=== PATIENT | female | born 1985 | race Two or more races ===

== ENCOUNTER 2024-12-28 19:30 | Emergency (ER) | payer MEDICAID, OTHER ==
[~2024-12-28] VITALS: Ht 160 cm; Wt 90.9 kg
[2024-12-28 19:40] VITALS: TEMP 98.7
--- NOTE | 2024-12-28 19:56 | ED.PDOC ---
History of Present Illness HPI Comments This is a 39-year-old female who comes in with chief complaint of chest pain which is substernal in nature. The patient states that the pain worsens with the movement and deep respiration rate. The patient also states that she has been increasing her workouts and the pain seems to also increase with movement at the gym. The patient denies any shortness a breath, nausea or vomiting. The patient was also having a mild headache. The symptoms started yesterday and seemed to worsened so she came to the emergency department for evaluation. Chief Complaint: Chest Pain Time Seen by MD: 19:31 Reviewed Notes: Nurses Notes, Medications, Allergies (No allergies to medications) Allergies: Coded Allergies: NO KNOWN ALLERGIES (Unverified , 12/28/24) Information Source: Patient Mode of Arrival: Ambulatory Severity: Mild Timing: Days Duration: Since onset Prehospital treatment: None Location: Substernal chest pain that is sharp in nature Associated signs and symptoms The patient states that she is not having any shortness for breath, nausea or vomiting Past Medical History PAST MEDICAL HISTORY: Denies Surgical History: Denies all surgeries 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 MILLING 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 History: No 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 CHEMICAL MILLING PROCESSOR History Family History Family History: Family hx of HTN, Family hx of stroke Social History Smoker: Non-Smoker Alcohol: Occasionally Drugs: Marijuana Lives In: Home Constitutional: denies: chills, diaphoresis, fatigue, fever, malaise, sweats, weakness, others EENTM: denies: blurred vision, double vision, ear bleeding, ear discharge, ear drainage, ear pain, ear ringing, eye pain, eye redness, hearing loss, mouth pain, mouth swelling, nasal discharge, nose bleeding, nose congestion, nose pain, photophobia, tearing, throat pain, throat swelling, voice changes, others Respiratory: denies: cough, hemoptysis, orthopnea, SOB at rest, shortness of breath, SOB with excertion, stridor, wheezing, others Cardiovascular: reports: chest pain; denies: dizzy spells, diaphoresis, Dyspnea on exertion, edema, irregular heart beat, left arm pain, lightheadedness, palpitations, PND, syncope, others Gastrointestinal: denies: abdomen distended, abdominal pain, blood streaked bowels, constipated, diarrhea, dysphagia, difficulty swallowing, hematemesis, melena, nausea, poor appetite, poor fluid intake, rectal bleeding, rectal pain, vomiting, others Genitourinary: denies: abnormal vagina bleeding, burning, dyspareunia, dysuria, flank pain, frequency, hematuria, incontinence, pain, , vagina discharge, urgency, others Neurological: reports: headache; denies: dizziness, fainting, left sided numbness, left sided weakness, numbness, paresthesia, pre-existing deficit, right sided numbness, right sided weakness, seizure, speech problems, tingling, tremors, weakness, others Musculoskeletal: denies: back pain, gout, joint pain, joint swelling, muscle pain, muscle stiffness, neck pain, others Integumetry: denies: bruises, change in color, change in hair/nails, dryness, laceration, lesions, lumps, rash, wounds, others Allergic/Immunocompromised: denies: Difficulty Healing, Frequent Infections, Hives, Itching, others Hematologic/Lymphatic: denies: anemia, blood clots, easy bleeding, easy bruising, swollen glands, others Endocrine: denies: excessive hunger, excessive sweating, excessive thirst, excessive urination, flushing, intolerance to cold, intolerance to heat, unexplained weight gain, unexplained weight loss, others Psychiatric: denies: anxiety, bipolar disorder, depression, hopeless, panic disorder, schizophrenia, sleepless, suicidal, others Physical Exam General Appearance: No Apparent Distress HEENT: Normal ENT Inspection, Pharynx Normal, TMs Normal Neck: Full Range of Motion, Non-Tender, Normal, Normal Inspection Respiratory: Lungs Clear, No Accessory Muscle Use, No Respiratory Distress, Normal Breath Sounds, Other (Tenderness to mid chest) Cardiovascular: No Edema, No JVD, No Murmur, No Gallop, Normal Peripheral Pulses, Regular Rate/Rhythm Breast Exam: Deferred Gastrointestinal: No Organomegaly, Non Tender, No Pulsatile Mass, Normal Bowel Sounds, Soft Genitalia: Deferred Pelvic: Deferred Rectal: Deferred Extremities: No calf tenderness, Normal capillary refill, Normal inspection, Normal range of motion, Non-tender, No pedal edema Musculoskeletal : Apperance: Normal Neurologic: Alert, quality engineer II-XII nml as Tested, Headache, No Motor Deficits, Normal Affect, Normal Mood, No Sensory Deficits Cerebellar Function: Normal Reflexes: Normal Skin: Dry, Normal Color, Warm Lymphatic: No Adenopathy Was a procedure done? Was a procedure done?: No EKG EKG : Pulse Rate (adult): 73 [place]: Normal Cardiac Rhythm: NSR Block: None ST: Nonsp Differential Dx Considerations may include: ACS, MD, contusion, costochondritis X-Ray, Labs, Meds, VS Vital Signs Date Time Temp Pulse Resp B/P (MAP) Pulse Ox O2 Delivery O2 Flow Rate FiO2 12/28/24 19:56 73 12/28/24 19:40 98.7 70 16 140/98 (112) 98 98.7 12/28/24 19:36 73 Lab Test 12/28/24 19:49 Range/Units White Blood Count 7.4 4.4-10.8 10^3/uL Red Blood Count 4.54 4.0-5.20 10^6/uL Hemoglobin 12.5 12.2-16.2 g/dL Hematocrit 38.1 36.0-46.0 % Mean Corpuscular Volume 84.0 80.0-100.0 fL Mean Corpuscular Hemoglobin 27.6 L 28.0-32.0 pg Mean Corpuscular Hemoglobin Concent 32.9 32.0-36.0 g/dL Red Cell Distribution Width 14.0 11.8-14.3 % Platelet Count 307 140-450 10^3/uL Mean Platelet Volume 7.7 6.9-10.8 fL Neutrophils (%) (Auto) 56.0 37.0-80.0 % Lymphocytes (%) (Auto) 33.6 10.0-50.0 % Monocytes (%) (Auto) 7.0 0.0-12.0 % Eosinophils (%) (Auto) 2.1 0.0-7.0 % Basophils (%) (Auto) 1.3 0.0-2.0 % Neutrophils # (Auto) 4.2 1.6-8.6 10 ^3/uL Lymphocytes # (Auto) 2.5 0.4-5.4 10 ^3/uL Monocytes # (Auto) 0.5 0-1.3 10 ^3/uL Eosinophils # (Auto) 0.2 0-0.8 10 ^3/uL Basophils # (Auto) 0.1 0-0.2 10 ^3/uL Nucleated Red Blood Cells 0.1 % D-Dimer, Quantitative 0.23 0.0-0.49 mg/L FEU Sodium Level 140 136-145 mmol/L Potassium Level 3.7 3.5-5.1 mmol/L Chloride Level 109 H 98-107 mmol/L Carbon Dioxide Level 26 20-31 mmol/L Anion Gap 5 5-15 Blood Urea Nitrogen 13 9-23 mg/dL Creatinine 0.67 0.550-1.02 mg/dL Glomerular Filtration Rate Calc 113 >90 mL/min BUN/Creatinine Ratio 19.4 10.0-20.0 Serum Glucose 85 74-106 mg/dL Calcium Level 9.5 8.7-10.4 mg/dL Troponin I High Sensitivity < 3 L </=34 ng/L Chest x-ray shows no sign of any abnormalities The troponin level is negative The D-dimer is negative The CBC and chemistry panel are within normal limits At this time, the patient was being discharged The patient will follow up with the primary care doctor The patient will return to the emergency department's the condition worsens Images Reviewed?: Images reviewed and evaluated by me Time of 1ST Reevaluation: 19:55 Reevaluation 1ST: Improved Patient Education/Counseling: Diagnosis, Treatment, Prognosis, Need For Follow Up Family Education/Counseling: No Family Present Departure 1 Departure Time of Disposition: 19:55 Impression: Primary Impression: Musculoskeletal chest pain Disposition: 01 HOME / SELF CARE / HOMELESS Condition: Fair Discharged With: Self Critical Care Note Critical Care Time?: No Stability Stability form required: No Heart Score Heart Score: Heart Score Response (Comments) Value History Slightly Suspicious 0 EKG Normal 0 Age <45 0 Risk Factors 1 or 2 risk factors 1 Troponin Normal limit 0 Total 1 ZARIA FISHER MD Dec 28, 2024 19:56
[2024-12-28 19:57] LABS: Basophils # (auto) 0.1 10 ^3/uL (0-0.2); Basophils % (auto) 1.3 % (0.0-2.0); Eosinophils # (auto) 0.2 10 ^3/uL (0-0.8); Eosinophils % (auto) 2.1 % (0.0-7.0); Hematocrit 38.1 % (36.0-46.0); Hemoglobin 12.5 g/dL (12.2-16.2); Lymphocytes # (auto) 2.5 10 ^3/uL (0.4-5.4); Lymphocytes % (auto) 33.6 % (10.0-50.0); Mean Corpuscular Hemoglobin 27.6 pg (28.0-32.0); Mean Corpuscular Hgb Conc. 32.9 g/dL (32.0-36.0); Monocytes # (auto) 0.5 10 ^3/uL (0-1.3); Neutrophils # (auto) 4.2 10 ^3/uL (1.6-8.6); Nucleated Red Blood Cells % 0.1 %; Platelet Count (auto) 307 10^3/uL (140-450); Red Blood Cells 4.54 10^6/uL (4.0-5.20); White Blood Cell 7.4 10^3/uL (4.4-10.8)
[2024-12-28 20:07] LABS: Potassium 3.7 mmol/L (3.5-5.1); Sodium 140 mmol/L (136-145)
[2024-12-28 20:08] LABS: Anion Gap 5 (5-15); Carbon Dioxide 26 mmol/L (20-31)
[2024-12-28 20:09] LABS: Calcium 9.5 mg/dL (8.7-10.4)
[2024-12-28 20:13] LABS: BUN/Creatinine Ratio 19.4 (10.0-20.0); Blood Urea Nitrogen 13 mg/dL (9-23); Glucose 85 mg/dL (74-106)
[2024-12-28 20:15] LABS: Chloride 109 mmol/L (98-107)
--- NOTE | 2024-12-28 20:22 | DVH ---
XY CHEST TWO VIEWS ROUTINE CLINICAL HISTORY: CP COMPARISON: None TECHNIQUE: Frontal and lateral view of the chest was obtained FINDINGS: Lines and Tubes: None Lungs: No focal consolidation. Pleura: No effusion. No pneumothorax. Cardiomediastinal contours: Unremarkable Bones: No acute osseous abnormality. IMPRESSION: No acute cardiopulmonary disease.
--- NOTE | 2024-12-28 20:35 | ECG ---
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
[2024-12-28 23:08] VITALS: BP 124/88; PULSE 86; RESP 13; O2SAT 95
[2024-12-28] MEDS: KETOROLAC TROMETH 60MG/2ML VIAL IM ONE (23:09)
[2024-12-28] MEDS: ASPirin 81 mg TAB PO ONE (23:09)
== END 2024-12-29 03:55 | disposition home or self-care (01) ==
LOC: ER 19:30
DX: R07.89 Other chest pain (principal)
CPT/HCPCS: 36415; 71046; 80048; 84484; 85025; 85379; 93005